=== PATIENT | male | born 1980 | race Two or more races ===

== ENCOUNTER 2017-08-24 18:45 | Emergency (ER) | payer MEDICAID ==
[~2017-08-24] VITALS: Ht 170.2 cm; Wt 79.4 kg
--- NOTE | 2017-08-24 20:10 | NUR ---
Patient discharged to home in stable conditon. Written and verbal after care instructions given. Patient verbalizes understanding of instructions. Patient ambulated out of ER with steady gait, no acute signs of distress, VSS, all belongings taken, copy of Xray results provided.
[2017-08-24 20:11] VITALS: BP 110/63
== END 2017-08-24 20:11 | disposition home or self-care (01) ==
LOC: ER 18:46
DX: T17.208A Unspecified foreign body in pharynx causing other injury, initial encounter (principal); X58.XXXA Exposure to other specified factors, initial encounter; Y93.89 Activity, other specified; Y92.89 Other specified places as the place of occurrence of the external cause; Y99.8 Other external cause status
CPT/HCPCS: 70360; A4663